=== PATIENT | female | born 1960 | race Caucasian/White ===

== ENCOUNTER 2017-02-12 09:26 | Inpatient (IN) | payer MEDICARE ==
[~2017-02-12] VITALS: Ht 170.2 cm; Wt 91.2 kg
--- NOTE | ~2017-02-12 | CO ---
Unit #: [id number] #: [id number] Patient: FALLON GALLEGO [id number] [address] [address] [id number] I MR#: [id number] NAME: FALLON GALLEGO ROOM: 570 Age: 56 Sex: F Admission Date: 02/12/2017 : 1960 Attending Physician: Yolande Blair M.D. Primary Care Physician: Annetta Jones M.D. Consultation Date: 02/15/2017 CONSULTATION REPORT REASON FOR CONSULTATION Followup. DISCUSSION Ms. Fallon Gallego is a 56-year-old female, seen in room 517, bed 1, on 02/15/2017. The patient dressed in hospital attire, lying comfortably. The patient is pleasant and cooperative, reports making progress. Denied any suicidal or homicidal ideation. Denied any psychotic symptom. The patient's vital signs; temperature 98.0, pulse 92, respirations 17, blood pressure 142/62, oxygen saturation 96%. REVIEW OF SYSTEMS Complete review of systems unremarkable. MENTAL STATUS EXAMINATION General appearance, the patient dressed casually, lying in a propped up position. Pleasant and cooperative. Attention span and concentration, fair. Speech, regular rate and coherent. Oriented in time, place, and person. Mood and affect, sad, dysphoric, but able to smile. Thought process, coherent. Thought content, the patient denied any thoughts of harming self or others. Denied any hallucination. Recent and remote memory, fair. Language, intact. Fund of knowledge, fair. Insight and judgment, fair to slightly impaired. DIAGNOSES Psychiatric: Major depressive disorder, recurrent, severe, F33.2; delirium, F05, resolved. ASSESSMENT AND PLAN 1. Supportive psychotherapy and psychoeducation provided to the patient. 2. Educated about benefits and side effects of medication and course and prognosis of illness. 3. Advised to continue with current medication. If needed, consider further adjustment of medication. We will make further adjustment of medication if needed. Dictated by... Ag Kat M.D. BEVERLY/lidia TD: 02/16/2017 00:26 JOB #: [id number] Unit #: [id number] #: [id number] Patient: FALLON GALLEGO CONSULTATION REPORT Page 1 of 1 X Ag Kat MD CONSULTATION REPORT
--- NOTE | ~2017-02-12 | CO ---
Unit #: [id number] #: [id number] Patient: FALLON GALLEGO [id number] [address] [address] [id number] I MR#: [id number] NAME: FALLON GALLEGO ROOM: 570 Age: 56 Sex: F Admission Date: 02/12/2017 : 1960 Attending Physician: Yolande Blair M.D. Primary Care Physician: Annetta Jones M.D. Consultation Date: 02/16/2017 CONSULTATION REPORT DISCUSSION Fallon Gallego is a 36-year-old female seen in room 570, bed 1 on 02/16/2017 at [facility]. The patient was dressed casually, lying comfortably in bed. The patient reports medication is helping her. Decrease in anxiety and depression. Able to sleep better. Denied any suicidal or homicidal ideation. Denied any psychotic symptoms. Vital signs 98.0, 86, 16, 147/78, oxygen saturation 95%. REVIEW of SYSTEMS: Unremarkable. MENTAL STATUS EXAMINATION: General appearance, the patient is dressed casually. Attention and concentration fair. Speech regular rate, coherent. Oriented to time, place and person. Mood and affect brighter. Thought process coherent. Thought content, the patient denied any thoughts of harming self or others. No psychotic symptoms. Recent and remote memory fair. Language intact. Fund of knowledge fair. Insight and judgment fair to slightly improved. DIAGNOSES Psychiatric: Major Depressive disorder, recurrent, severe. F33.2 ASSESSMENT/PLAN Advised to continue with current medications and therapy protocol. If needed, consider further adjustment of medication. Dictated by... Carolyn Perez/ellen TD: 02/16/2017 15:43 JOB #: [id number] Unit #: [id number] #: [id number] Patient: FALLON GALLEGO CONSULTATION REPORT Page 1 of 1 X Ag Kat MD X CONSULTATION REPORT
--- NOTE | ~2017-02-12 | CT71 ---
[facility] A Service of [facility] RADIOLOGY TEXT RESULTS PATIENT: MONIKA OCHOA LOCATION: CICCU3 CICCU3-14 : [birth year] UNIT #: [id number] AGE: [address]: Yolande Blair MD SEX: F ORDER DR: [id number] [facility] [address] [place], [place] [address] [id number] MR#: [id number] Acc #: [id number] NAME: MONIKA OCHOA : 1960 SEX: F STUDY DATE/TIME: 02/12/2017 10:02 UNIT: CEDOF ROOM: [id number] STUDY DESCRIPTION: CT Head Wo Contrast Attending Physician: Kong Buitrago M.D. Ordering Physician: Jose Rios M.D. Primary Care Physician: Annetta Jones M.D. MEDICAL IMAGING REPORT This report is preliminary unless electronic signature is present EXAM CT head, 02/12/2017. HISTORY Found unresponsive this a.m. LSN last p.m. 1999. Responds only to severe pain, deviated to right. TECHNIQUE CT head performed skull base through vertex without intravenous contrast. This CT exam was performed with one or more of the following radiation dose reduction techniques: automatic exposure control, adjustment of mA and/or kV according to patient size, and iterative reconstruction. COMPARISON 07/22/2016. FINDINGS The brainstem is unremarkable. The cerebellum and cerebral hemispheres show normal sosa matter-white matter differentiation. There is no hemorrhage or evidence of acute cortical ischemia. The midline structures are nondisplaced. The basal ganglia are intact. The ventricles, cisterns, and sulci are normal in size and contour. The intraorbital soft tissues are unremarkable. The visualized paranasal sinuses and mastoid air cells are notable for minimal mucosal thickening ethmoid air cells. No air-fluid levels. Minimal mucosal thickening left frontal sinus. Significantly improved appearance of the sinuses compared to prior study. No fracture. No intra- or extraaxial mass effect or abnormal intracranial fluid collection. Not mentioned above, there is a subcentimeter focus of hypodensity inferior right putamen favored to be dilated perivascular space or chronic lacunar infarct. It is unchanged from prior study. IMPRESSION [facility] A Service of [facility] RADIOLOGY TEXT RESULTS PATIENT: MONIKA OCHOA LOCATION: CICCU3 CICCU3-14 : [birth year] UNIT #: [id number] AGE: [address]: Yolande Blair MD SEX: F ORDER DR: 1. No acute abnormality in brain. No change in comparison to 07/22/2016. If patient has ongoing neurologic symptoms, consider follow up imaging preferably with MRI if patient is a candidate. 2. Chronic subcentimeter lacunar infarct versus dilated perivascular space inferior right putamen, unchanged from prior study. 3. Mild mucosal thickening ethmoid air cells and left frontal sinus. Appearance of the paranasal sinuses markedly improved compared to prior examination. Dictated by... Tej Desir M.D. THIS IS AN ELECTRONICALLY VERIFIED REPORT Tej Desir M.D. at 02/13/2017 6:15 PM JEREMI/rea TD: 02/12/2017 14:00 JOB #: [id number] MEDICAL IMAGING REPORT Page 1 of 1 COPY
--- NOTE | ~2017-02-12 | CR72 ---
[facility] A Service of [facility] RADIOLOGY TEXT RESULTS PATIENT: MONIKA OCHOA LOCATION: CEDOF [address]-00 : [birth year] UNIT #: [id number] AGE: [address]: FAZAL GARCIA MD SEX: F ORDER DR: [id number] [facility] [address] [place], [place] [address] [id number] MR#: [id number] Acc #: [id number] NAME: MONIKA OCHOA : 1960 SEX: F STUDY DATE/TIME: 02/12/2017 10:20 UNIT: GUILLERMO ROOM: STUDY DESCRIPTION: CR Chest Single View Portable Attending Physician: Jose Rios M.D. Ordering Physician: Jose Rios M.D. Primary Care Physician: Annetta Jones M.D. MEDICAL IMAGING REPORT This report is preliminary unless electronic signature is present EXAM Chest portable 02/12/2017 10:20 hours. HISTORY 56-year-old woman unresponsive today with shortness of air and intubated. Bradycardia. COMPARISON 07/31/2016. FINDINGS Portable film is limited by low lung volumes and positioning. There is an endotracheal tube present with tip 3.6 cm above the shireen. Heart size is within normal limits. There is a mildly prominent aorta unchanged. There is elevation of the right hemidiaphragm with right basilar density. This could represent pneumonia or atelectasis. Left lung is clear and there is no effusion or pneumothorax. IMPRESSION 1. Endotracheal tube tip is 3.6 cm above the shireen. 2. Stable heart size and a mildly tortuous aorta. 3. There is right basilar density and some right-sided elevation of the hemidiaphragm. Right basilar findings could represent pneumonia or atelectasis. There is no definite effusion or pneumothorax. Dictated by... Anita Lynch M.D. THIS IS AN ELECTRONICALLY VERIFIED REPORT Anita Lynch M.D. at 02/12/2017 2:30 PM SMM/gz TD: 02/12/2017 10:[address] [facility] A Service of [facility] & [facility] RADIOLOGY TEXT RESULTS PATIENT: MONIKA OCHOA LOCATION: [facility] [address]-00 : [birth year] UNIT #: [id number] AGE: [address]: FAZAL GARCIA MD SEX: F ORDER DR: JOB #: [id number] MEDICAL IMAGING REPORT Page 1 of 1 COPY
--- NOTE | ~2017-02-12 | CO ---
Unit #: [id number] #: [id number] Patient: FALLON GALLEGO [id number] [address] [address] [id number] I MR#: [id number] NAME: FALLON GALLEGO ROOM: 570 Age: 56 Sex: F Admission Date: 02/12/2017 : 1960 Attending Physician: Yolande Blair M.D. Primary Care Physician: Annetta Jones M.D. Consultation Date: 02/14/2017 CONSULTATION REPORT REASON FOR CONSULTATION Followup. DISCUSSION Ms. Fallon Gallego is a 56-year-old female, seen in CCU-3, bed 14, on 02/14/2017 at [facility]. The patient is recovering well. Affect bright. Mood good. Reports medication is helping with anxiety and depression. Sleeping good. Making progress. Denied any suicidal or homicidal ideation. The patient's vital signs; temperature 99.1, pulse 89, respirations 21, blood pressure 148/60, oxygen saturation 95%. REVIEW OF SYSTEMS Complete review of systems unremarkable. MENTAL STATUS EXAMINATION General appearance; the patient is dressed casually, lying comfortably in bed, receiving IV. Made good eye contact. Pleasant and cooperative. Attention span and concentration, fair. Speech, regular rate and coherent. Oriented in time, place, and person. Mood and affect; sad, dysphoric, anxious, but reports feeling better. Thought process, goal directed. Thought content, the patient denied any thoughts of harming self or others or any psychotic symptom. Recent and remote memory, fair. Language, intact. Fund of knowledge, fair. Insight and judgment, fair to slightly impaired. DIAGNOSES Psychiatric: Delirium, F05, resolved; major depressive disorder, recurrent, severe, F33.2. ASSESSMENT AND PLAN Advised to continue with current medication and therapeutic protocol. If needed, consider further adjustment of medication. Please feel free to call if any question, telephone #[phone]. Dictated by... Ag Kat M.D. BEVERLY/lidia TD: 02/16/2017 01:44 JOB #: [id number] Unit #: [id number] #: [id number] Patient: FALLON GALLEGO CONSULTATION REPORT Page 1 of 1 X Ag Kat MD CONSULTATION REPORT
--- NOTE | ~2017-02-12 | DS ---
Unit #: [id number] #: [id number] Patient: MONIKA OCHOA [id number] [address] [address] [id number] I MR#: [id number] NAME: MONIKA OCHOA ROOM: 570 Age: 56 Sex: F Admission Date: 02/12/2017 : 1960 Discharge Date: 02/16/2017 Attending Physician: Yolande Blair M.D. Primary Care Physician: Annetta Jones M.D. DISCHARGE SUMMARY DISCHARGE DIAGNOSES 1. Acute hypoxic respiratory failure. 2. Toxic metabolic encephalopathy. 3. Possible seizures. 4. Aspiration pneumonia. 5. Hyponatremia. 6. Urinary tract infection with gram negative, Enterobacter cloacae. 7. Unresponsiveness on admission. 8. Sepsis with pneumonia and urinary tract infection. 9. History of back pain. 10. Bipolar. 11. Migraine headaches. 12. Hypertension. 13. Mitral valve prolapse. CONSULTANTS Dr. Mayela Buitrago. Dr. Sparrow. Dr. Kat. PROCEDURES PERFORMED EEG shows abnormal. Nothing suggesting seizure. DIAGNOSTIC DATA LABORATORY: Glucose 88, phosphorus 4.2, sodium 139, potassium 4.6, creatinine 0.6. White blood cell count 10.8, hemoglobin 10.3, platelets 270. Urine cultures are growing enterococcus. Blood cultures negative. IMAGING: CT of the head shows no acute abnormality. ALLERGIES No known drug allergies. DISCHARGE MEDICATIONS 1. Nicotine 14 mg transdermal daily. 2. Valium 5 mg p.o. t.i.d. 3. Zyprexa 5 mg p.o. daily. 4. Vimpat 100 mg p.o. b.i.d. HOSPITAL COURSE The patient is a 56-year-old admitted with unresponsiveness. Unresponsiveness: Likely from seizure. The patient was seen by neurologist and started on IV Vimpat. The patient will be discharged on Unit #: [id number] #: [id number] Patient: MONIKA OCHOA p.o. Vimpat. EEG is abnormal, but nothing suggesting seizure. Follow with neurologist as an outpatient. Acute hypoxic respiratory failure: Likely from pneumonia and unresponsiveness. The patient was seen by Dr. Mayela Buitrago. Currently the patient is off oxygen and stable. For the acute hypoxic respiratory failure, the patient was initially intubated and currently extubated. She was in the ICU. Aspiration pneumonia: Likely after seizures. The patient received antibiotics and completed course. No antibiotic needed. Enterococcus urinary tract infection: Completed broad spectrum antibiotics. She does not need antibiotics at home. Hyponatremia: The patient was seen by nephrology. Likely from hypovolemia. Replaced with normal saline. Currently stable. Toxic metabolic encephalopathy: Present on admission. Likely from seizures, resolved. The patient was seen by Dr. Kat. He is okay for the patient to be discharged home. No inpatient needed for bipolar disease. He recommended Valium, which I gave a prescription for a few days. She needs to follow up with outpatient [facility], Dr. Kat, for followup. DISPOSITION Discharge home. blood bank manager to help with medications. FOLLOWUP 1. Follow up with primary care physician in one week time. 2. Follow up with Dr. Jeffrey Thomas in three weeks time for seizures. Discharge time taken was 40 minutes. Dictated by... Carolyn Ruiz/ellen TD: 02/16/2017 13:49 JOB #: [id number] CC: Annetta Jones M.D. DISCHARGE SUMMARY Page 1 of 1 X Yolande Blair MD X DISCHARGE SUMMARY
--- NOTE | ~2017-02-12 | CO ---
Unit #: [id number] #: [id number] Patient: MONIKA OCHOA [id number] [facility] [address] [place], [place] [address] [id number] I MR#: [id number] NAME: MONIKA OCHOA ROOM: CIC3 Age: 56 Sex: F Admission Date: 02/12/2017 : 1960 Attending Physician: Yolande Blair M.D. Primary Care Physician: Annetta Jones M.D. Consultation Date: 02/12/2017 CONSULTATION REPORT PRIMARY CARE PHYSICIAN Annetta Jones M.D. REASON FOR CONSULTATION Seizures. PATIENT IDENTIFICATION This is a 56-year-old female, evaluated in ICU room 14. SOURCE OF INFORMATION Obtained from the medical record. Limited history as the patient is unable to provide any history. There is no family available at the bedside. HISTORY OF PRESENT ILLNESS This is a 56-year-old female with past medical history of multiple medical issues as discussed below, who presents to [facility] with altered mental status and unresponsiveness. Again, I am unable to obtain any information from the patient. She is intubated and sedated. There is no family available at the bedside. So, my information obtained from the ER medical record. Looking at the ERT sheet, the patient was brought in via EMS for decreased mental status with last seen normal at about 8:00 p.m. the night before. She was apparently disoriented and confused and found unresponsive by family this morning. There is report that the patient apparently quit drinking about 5 to 7 days ago and apparently stopped her routine prescriptions Xanax about 3 days ago, possibly due to being stolen, though I do not have those details. I do not have any report of any recent febrile illness, fever, headache, or injury. She is being admitted for altered mental status, seizure activity, possible pneumonia, and hyponatremia. Her sodium in the ER was 115. She has been started on 3% saline. She also had a CT of the head done in the ER that was negative for any acute intracranial abnormality in the brain in comparison to imaging from 07/22/2016. It shows a chronic subcentimeter lacunar infarct versus dilated perivascular space in the inferior right putamen unchanged from prior study, also mild mucosal thickening in the ethmoid air cells and left frontal sinus, appearance of the paranasal sinuses markedly improved compared to prior exam. In the ER, the patient was noted to have concern for seizure activity with right gaze deviation. She was treated with 2 mg of IV Ativan. It looks like she was intubated for airway protection given her mental status. Upon evaluation at this time, the patient is intubated and sedated, but with sedation vacation after propofol. She does not follow Unit #: [id number] #: [id number] Patient: SCOTTIE OCHOAKI commands or respond appropriately. She does not appear to have any gaze deviation, but she has repetitive horizontal eye movements. She does not track purposely, but she has a repetitive pattern of looking back and forth horizontally. She does not respond to any commands and she does not respond to any visual threats. She does withdrawal from noxious stimuli equally and does not appear to have any facial drooping or weakness. Again, she does not follow commands. She does not have any hippus or any nystagmus or ptosis seen. Pupils are equal, round, sluggish approximately 3+. Again, I am unable to obtain any further history from the patient or family or medical record. All history is obtained from the ERT sheet. PAST MEDICAL HISTORY 1. The patient was discharged from this facility in 07/2016 after being treated for intentional polysubstance overdose with opiates, benzodiazepines, and tricyclics as well as treatment for acute hypercapnic hypoxic respiratory failure and aspiration pneumonia as well as anion gap metabolic acidosis and hypokalemia. 2. History of bipolar disorder. 3. Vertigo. 4. Migraine headaches. 5. Mitral valve prolapse. 6. Tobacco use. 7. Anemia. 8. Sinus surgery. 9. Anxiety. 10. Breast augmentation. 11. Shoulder surgery. 12. Gastric bypass. 13. Hypertension. ALLERGIES No known drug allergies. MEDICATIONS Home medications are being reconciled. FAMILY HISTORY Unable to obtain from the patient. Looking at past records, she does not appear to have any documented significant family history other than a documented history of hypertension. SOCIAL HISTORY Unable to obtain from the patient, it looks like in the past. Per medical records, she has a history of tobacco use and alcohol use. It is reported that she quit drinking about 5 to 7 days ago. I do not know what her consumption amount was. She has a history of cocaine use with toxicology screen being positive for cocaine in 04/2015. Her urine drug screen on this admission today is unremarkable. Looking at the ERT sheet, she was apparently found by family. I am not certain whom she lives with as far as her social history. REVIEW OF SYSTEMS Unable to obtain from the patient given her mental status. PHYSICAL EXAMINATION VITAL SIGNS: Temperature 100.8. She has a T-max of 101.1, pulse 96, respirations , blood pressure 118/90, oxygen saturation 98%, height 5 feet 7 inches, weight 195 pounds. BMI 30. Unit #: [id number] #: [id number] Patient: MONIKA OCHOA NEUROLOGIC: The patient is intubated. She sedated on sedation vacation from propofol. She appears to be awake, but does not follow commands. Not purposely responsive. She withdraws from noxious stimuli, but has repetitive movements. Unable to assess speech or cognition further. She does not follow commands and she is intubated. Cranial nerve exam, she does not respond to threats in the primary visual shah. Eyes are conjugate. No ptosis or nystagmus or hippus. Extraocular movements appear to be intact; however, as discussed above she appears to have a repetitive pattern of looking back and forth. There is no purposeful response. There is no response to visual threats. She does not look in the direction of voice or other stimulus. Unable to assess sensation of face and scalp. When assessing grimace in response to noxious stimuli, she does not appear to have any focal deficit as far as strength of muscles of facial expression. Unable to assess hearing. Head turning is unremarkable spontaneously. Neck is supple. Motor exam, she withdraws from noxious stimuli equally. She lifts extremities against gravity equally, but does not follow commands. Sensory exam, she withdraws from noxious stimuli equally in all extremities. Gait and Romberg deferred. Reflexes, unable to elicit. Toes are upgoing bilaterally. DIAGNOSTIC STUDIES IMAGING STUDIES: Please see above for CT of the head. Chest x-ray, portable single view on 02/12/2017; impression per the radiologist report; 1. Endotracheal tube tip is 3.6 cm above the shireen. 2. Stable heart size and mildly tortuous aorta. 3. There is right basilar density and some right-sided elevation of the hemidiaphragm. Right basilar findings could represent pneumonia or atelectasis. No definite effusion or pneumothorax. LABORATORY RESULTS: Troponin less than 0.05. Urine drug screen unremarkable. Urinalysis shows 3+ leuks, positive for nitrites, 50 to 100 white cells, 2+ bacteria. No squamous cell seen. Culture pending. Sodium 115, potassium 3.4, chloride 83, CO2 20, glucose 141, BUN less than 5, creatinine 0.5, estimated GFR 109.7, calcium 9, AST 29, ALT 25, alkaline phosphatase 85, total protein 7.6, albumin 4.4. Acetaminophen level less than 10. Salicylate level less than 4. Alcohol level less than 5. Ammonia 16. Lactic acid 1.6. PT 10.8, INR 1.0, PTT 26.4. White blood cell count 14.8, hemoglobin 12.8, hematocrit of 37.8, and platelet count 327. Initial troponin less than 0.05. IMPRESSION 1. Altered mental status/toxic metabolic encephalopathy. 2. Seizure activity. 3. Hyponatremia. 4. Pneumonia. 5. Urinary tract infection. Culture pending. 6. Questionable benzodiazepine withdrawal. 7. Questionable alcohol withdrawal. 8. Fever. 9. Leukocytosis. PLAN The patient is still exhibiting repetitive movements, not responding appropriately. We will treat with seizure medications and check EEG and discussed with Dr. Sparrow. Recommend caution with increasing sodium slowly to avoid central pontine myelinolysis. The patient does have what looks like infection and there has been no report of headache and no Unit #: [id number] #: [id number] Patient: MONIKA OCHOA meningismus to suggest GOVERNMENT PROGRAM MANAGER infection. However must consider that in the differential diagnosis and consider LP if needed. The patient has received vancomycin, Zithromax, and Zosyn. The patient is critically ill. We will consider lumbar puncture if needed, though she does have UTI and possible pneumonia. The seizure activity could be related to benzodiazepine withdrawal, possible alcohol withdrawal and low-sodium. Certainly, her sodium of 115 can precipitate a seizure activity as well. However given her continuous repetitive movements, we will go ahead and initiate seizure medication. Request EEG. Possible further testing pending workup and further clinical course. She is being covered on antibiotics. We will consider MRI of the brain if needed as well. Case was discussed with Dr. Sparrow. She agrees the above. We will follow along with you. We thank you very much for allowing us to assist in care of this patient. Dictated by... Brii Newton A.P.R.N. for Carolyn Barkley/lidia TD: 02/13/2017 13:48 JOB #: [id number] CONSULTATION REPORT Page 1 of 1 X Brii Newton CURING PRESS MAINTAINER X CONSULTATION REPORT
--- NOTE | ~2017-02-12 | EE ---
Unit #: [id number] #: [id number] Patient: MONIKA OCHOA [id number] [address] [address] [id number] I MR#: [id number] NAME: MONIKA OCHOA : 1960 SEX: F STUDY DATE/TIME: 02/13/2017 UNIT: [facility] ROOM: 570 STUDY DESCRIPTION: EEG Attending Physician: Yolande Blair M.D. Primary Care Physician: Annetta Jones M.D. NEURODIAGNOSTICS REPORT EXAM EEG REFERRING MD Dr. Kong Buitrago REASON FOR THE STUDY Seizure. EEG DESCRIPTION This is an inpatient, portable, digitally recorded multi-montage adult EEG with leads placed according to the International 10-20 System. Hyperventilation was not done but photic stimulation was attempted. With the patient fully aroused, there is no good alpha activity. There is 5 to 7 Hz slowing. No good alpha rhythm was seen. The patient did become drowsy and later on stage 2 sleep was seen. Hyperventilation was not done. Photic stimulation was attempted in intermittent stepwise pattern up to the flash frequency of 30 Hz but I did not see any seizures or interictal discharges. No clinical events were seen. IMPRESSION This is an abnormal adult awake and asleep EEG. This may be drowsiness but otherwise would consider mild encephalopathy. Nothing suggesting seizure or status but an EEG like this does not rule out epilepsy. Clinical correlation is recommended. Dictated by... Carolyn Barkley/lennox TD: 02/16/2017 05:36 JOB #: [id number] Unit #: [id number] #: [id number] Patient: MONIKA OCHOA NEURODIAGNOSTICS REPORT Page 1 of 1 X Leobardo Sparrow MD NEURODIAGNOSTICS REPORT
--- NOTE | ~2017-02-12 | CO ---
Unit #: [id number] #: [id number] Patient: FALLON GALLEGO [id number] [facility] [address]. [place], [place] [address] [id number] I MR#: [id number] NAME: FALLON GALLEGO ROOM: 570 Age: 56 Sex: F Admission Date: 02/12/2017 : 1960 Attending Physician: Yolande Blair M.D. Primary Care Physician: Annetta Jones M.D. Consultation Date: 02/13/2017 CONSULTATION REPORT REASON FOR CONSULTATION Confusion, alcohol abuse, anxiety, agitation. HISTORY OF PRESENT ILLNESS Ms. Fallon Gallego is a 56-year-old white female, seen in CCU-3, bed 14 on 02/13/2017 at [facility]. The patient is dressed in hospital attire and needing mild soft restraint due to agitation and confusion. The patient is receiving IV fluids. She is sitting in a propped up position in ICU bed. The patient's was at the bedside. The patient's last drink was almost a week ago, drinking heavily. The patient was having problem with the agitation and received Haldol and Ativan earlier this morning. The patient's vital signs; temperature 99.3, pulse 88, respirations 18, blood pressure 123/63, and oxygen saturation 95%. The patient has a history of previous psychiatric treatment and a followup with Dr. Diamond and Dr. Frankel. The patient was on Abilify and Lexapro, but the patient reported constantly that I was on Xanax, I need Xanax. The patient also was treated with Zyprexa. When [facility], she was on Abilify and Lexapro combination. PAST PSYCHIATRIC HISTORY Remarkable for history of outpatient treatment with Dr. Diamond and inpatient treatment at [facility]. PAST MEDICAL HISTORY Remarkable for history of chronic back pain, bilateral lower extremity numbness, vertigo, migraine headache, bipolar disorder, hypertension, mitral valve prolapse, history of gastric bypass surgery, sinus surgery, breast augmentation, shoulder surgery. MEDICATIONS The patient is on Xanax, naproxen, Zyprexa, Seroquel. ALLERGIES No known drug allergies. FAMILY HISTORY AND SOCIAL HISTORY The patient has a good support system. No history of abuse. History of alcohol abuse as mentioned above. History of cocaine abuse in 2015. REVIEW OF SYSTEMS Complete review of systems is remarkable for agitation, restlessness, confusion. The patient's vital signs; temperature 99.3, pulse 88, respirations 18, blood pressure 123/63, oxygen saturation 95%. GENERAL Unit #: [id number] #: [id number] Patient: FALLON GALLEGO APPEARANCE: The patient dressed casually in hospital attire, lying in a propped up position, somewhat anxious, nervous, agitated, repeating sentences over and over again. Attention span and concentration, poor. Speech; rapid and oriented in self and place. Mood and affect; labile. Thought process; circumstantial. Recent and remote memory; poor. Language; intact. Fund of knowledge; impaired. DIAGNOSES Psychiatric: Alcohol use disorder, severe, F10.20; delirium, F05; anxiety disorder, not otherwise specified, F40.01. Secondary diagnosis: Deferred. Medical diagnosis: Please refer to H and P. Stressors: Psychosocial stressors. ASSESSMENT/PLAN 1. Supportive psychotherapy and psychoeducation were provided to the patient. 2. Educated about benefits and side effects of medication and course and prognosis of illness. 3. To decrease agitation and confusion, recommending that the patient's Xanax to be replaced with Valium long-acting medication to slowly taper it off, to taper off benzodiazepine, starting with Valium 5 mg 3 times a day. Advised to hold medication if the patient is too sleepy, Zyprexa 5 mg b.i.d. We will closely monitor. Please feel free to call if any questions. Telephone number is [phone]. Dictated by... Ag Kat M.D. BEVERLY/lidia TD: 02/16/2017 01:03 JOB #: [id number] CONSULTATION REPORT Page 1 of 1 X Ag Kat MD CONSULTATION REPORT
--- NOTE | ~2017-02-12 | CO ---
Unit #: [id number] #: [id number] Patient: MONIKA OCHOA [id number] [address] [address] [id number] I MR#: [id number] NAME: MONIKA OCHOA [facility]OM: [facility] Age: 56 Sex: F Admission Date: 02/12/2017 : 1960 Attending Physician: Yolande Blair M.D. Primary Care Physician: Annetta Jones M.D. Consultation Date: 02/12/2017 CONSULTATION REPORT REASON FOR CONSULTATION ICU management. CHIEF COMPLAINT Unresponsiveness. HISTORY OF PRESENT ILLNESS This is a 56-year-old female, who is well known to our service from previous admission with past medical history significant for bipolar disorder, vertigo, migraine, mitral valve replacement, and polysubstance abuse, who was transferred to the emergency room after she was found unresponsive. The patient currently is intubated, sedated, and her is at bedside to obtain any information. Per records, the patient was last seen normal yesterday night. This morning, when her woke up, he found her unresponsive. Her eyes were deviated to the right and up. There was no witnessed epileptic movement, but again her eye position were concerning for seizure. Per staff, the patient takes benzodiazepine for a long time and her urine drug screen is negative for benzo. There is a including her medication which includes Xanax. The patient also had extensive history of drinking alcohol, but she quit 5 to 7 days ago. In the emergency room, her sodium was noted to be low and again she was intubated and sedated; however, when turned the sedation off, the patient does not follow any commands, but she tried to reach the ET tube. PAST MEDICAL HISTORY 1. Vertigo. 2. Migraine. 3. Bipolar disorder. 4. Hypertension. 5. Mitral valve prolapse. PAST SURGICAL HISTORY 1. Gastric bypass surgery. 2. Sinus surgery. 3. Breast augmentation. 4. Shoulder surgery. Unit #: [id number] #: [id number] Patient: MONIKA OCHOA SOCIAL HISTORY The patient is a smoker. She drinks alcohol and she quit 5 to 7 days ago. She has a history of polysubstance abuse including cocaine in 2015. FAMILY HISTORY Unable to obtain. ALLERGIES No known drug allergies. HOME MEDICATIONS Xanax, naproxen, Zyprexa, Seroquel. REVIEW OF SYSTEMS Unable to obtain. PHYSICAL EXAMINATION GENERAL: The patient is intubated and sedated. VITAL SIGNS: Blood pressure is 136/71, respiratory rate 16, O2 saturation 100%. HEENT: Atraumatic and normocephalic. PERRLA. EOMI. NECK: Supple. No JVD. No lymphadenopathy. CHEST: Clear to auscultation bilaterally. HEART: S1, S2. No murmurs, gallops, or rubs. ABDOMEN: Soft and nontender. Bowel sounds positive. No hepatosplenomegaly. EXTREMITIES: No edema or cyanosis. SKIN: No rashes. PROGRAM OR PROJECT ADMINISTRATOR: Intubated and sedated. She is moving all extremities spontaneously. No focal weakness. DIAGNOSTIC STUDIES LABORATORY RESULTS: Labs and other tests. Creatinine 0.4, sodium 121, potassium 2.7. White blood count 14.8, hemoglobin 12.8. IMAGING STUDIES: Chest x-ray is concerning for right lower lobe consolidation. ASSESSMENT 1. Acute hypoxic respiratory failure. 2. Aspiration pneumonia. 3. Seizures episodes. 4. Hyponatremia. 5. Hypokalemia. 6. Alcoholism. 7. Leukocytosis. PLAN 1. The patient is critical. She will be kept on the ventilator and will reassess for spontaneous breathing trial daily. 2. Hypertonic saline with caution given her rapid improvement in her sodium. Nephrology adjusting. 3. IV Zosyn for possible aspiration pneumonia. 4. Follow urine output very closely. 5. Antiepileptics per Neurology. 6. We will keep the patient n.p.o., but we will start tube feeds tomorrow if she is not extubated. 7. DVT/GI prophylaxis. Critical care time spent on this patient was 36 minutes. Unit #: [id number] #: [id number] Patient: MONIKA OCHOA Dictated by... Nelly Buitrago M.D. EA/lidia TD: 02/13/2017 15:30 JOB #: [id number] CONSULTATION REPORT Page 1 of 1 X NELLY MARTINES MD X CONSULTATION REPORT
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
--- NOTE | ~2017-02-12 | CR72 ---
[facility] A Service of [facility] RADIOLOGY TEXT RESULTS PATIENT: MONIKA OCHOA LOCATION: [place] [id number] : [birth year] UNIT #: [id number] AGE: [address]: FAZAL BUITRAGO MD SEX: F ORDER DR: [id number] [place] [id number] [facility]. [place], [place] [address] [id number] MR#: [id number] Acc #: [id number] NAME: MONIKA OCHOA : 1960 SEX: F STUDY DATE/TIME: 02/12/2017 14:32 UNIT: [facility] ROOM: [facility] STUDY DESCRIPTION: CR Chest Single View Portable Attending Physician: Fazal Buitrago M.D. Ordering Physician: Jose Rios M.D. Primary Care Physician: Annetta Jones M.D. MEDICAL IMAGING REPORT This report is preliminary unless electronic signature is present EXAM Frontal chest, 02/12/2017 INDICATIONS Central line placement, respiratory failure symptoms began today. Short of breath. TECHNIQUE Frontal chest compared with 02/12/2017 1020 hours. FINDINGS ET tube tip in good position above the shireen. Right-sided central line terminates at the [id number] SVC level. Cardiac silhouette borderline in size and stable. There is dextroscoliosis. Bronchovascular crowding with probable bibasilar atelectasis or faint infiltrates, right greater than left. No pneumothorax. IMPRESSION 1. Tubes and lines in satisfactory position. No pneumothorax. 2. Probable bibasilar atelectasis, right greater than left. Dictated by... William Martinez M.D. THIS IS AN ELECTRONICALLY VERIFIED REPORT William Martinez M.D. at 02/12/2017 11:33 PM RODRIGO/wil TD: 02/12/2017 21:06 JOB #: [id number] MEDICAL IMAGING REPORT [facility] A Service of [facility] RADIOLOGY TEXT RESULTS PATIENT: MONIKA OCHOA LOCATION: [address] : [birth year] UNIT #: [id number] AGE: [address]: FAZAL BUITRAGO MD SEX: F ORDER DR: Page 1 of 1 COPY
--- NOTE | ~2017-02-12 | EKG ---
PATIENT: MONIKA OCHOA UNIT #: [id number] Ventricular Rate: 63 BPM Atrial Rate: 63 BPM P-R Interval: 158 ms QRS Duration: 100 ms Q-T Interval: 482 ms QTC Calculation(Bezet): 493 ms P Hampton: 15 degrees Calculated R Hampton: 1 degrees Calculated T Hampton: 51 degrees Diagnosis Line: Normal sinus rhythm Diagnosis Line: Prolonged QT Diagnosis Line: Abnormal ECG Diagnosis Line: When compared with ECG of 22-JUL-2016 13:48, Diagnosis Line: Vent. rate has decreased BY 77 BPM Diagnosis Line: ST no longer depressed in Anterior leads Diagnosis Line: Confirmed by JOSE MIGUEL ROSALES MD ([id number]) on 02/12/2017 Diagnosis Line: 7:24:40 PM INTERPRETING MD: BOBBY EVANGELISTA
[~2017-02-12 09:26] MED LIST: ABILIFY2 MG PO; ALBUTEROL HFA INH; ALPRAZOLAM PO; AMBIEN10 MG PO; ATIVAN PO; ATIVAN0.5 MG PO; AUGMENTIN 875/125MG PO; CAPOZIDE PO; DICLOFENAC PO; DIFLUCAN PO; DOXEPIN HCL25 MG PO; EC-NAPROSYN500 MG PO; FLEXERIL PO; GEODON20 MG PO; HYDROCHLOROTHIA25 MG PO; HYDROCODONE-APA1 T30 PO; IBUPROFEN PO; IMITREX50 MG PO; INDERAL20 MG DOB; INDERAL20 MG PO; LISINOPRIL10 MG PO; LORAZEPAM1 MG PO; MECLIZINE HCL12.5 M1 PO; MEDROL DOSEPAK4 MG; MEDROL PO; NAPROSYN500 MG PO; NICOTINE TRANSD14 MG EXT; NORCO 7.5MG/325MG PO; PERCOCET 5-3251 TAB PO; PREDNISONE PO; SEROQUEL PO; SEROQUEL50 M1 PO; SKELAXIN PO; TOPAMAX25 MG DOB; ULTRAM PO; VOLTAREN75 MG PO; XANAX1 MG PO; XANAX2 MG PO
[2017-02-12] MEDS ORDERED: PATIENT'S PHARMACY (09:41)
[2017-02-12] MEDS ORDERED: XANAX1 MG PO (09:42)
[2017-02-12] MEDS ORDERED: ZYPREXA PO (09:44)
[2017-02-12] MEDS ORDERED: NAPROXEN PO (09:44)
[2017-02-12] MEDS ORDERED: SEROQUEL PO (09:44)
[2017-02-12 09:53] LABS: POC - CKMB 6.8 ng/mL (0.0-7.9); POC - TROPONIN <0.05 ng/mL (<=0.05)
[2017-02-12 10:06] LABS: BASOPHIL% 0.1 % (0-2.5); HEMATOCRIT 37.8 % (35.0-45.0); HEMOGLOBIN 12.8 gm/dL (12.0-16.0); LYMPHOCYTE# 1.2 X10e3 (1.0-3.5); LYMPHOCYTE% 8.1 % (17.0-45.0); MEAN CELL VOLUME 87.6 FL (83-96); MEAN CORPUSCULAR HEMOGLOBIN 29.6 PG (28-34); MEAN CORPUSCULAR HGB CONC 33.8 g/dL (30-36); MEAN PLATELET VOLUME 7.8 FL (6.5-11.5); MONOCYTE# 1.3 X10e3 (0-1.0); MONOCYTE% 9.1 % (3.0-12.0); NEUTROPHIL# 12.2 X10e3 (1.5-7.1); NEUTROPHIL% 82.7 % (40-75); PLATELET COUNT 327 X10e3 (140-420); RED BLOOD COUNT 4.31 X10e (3.90-5.30); RED CELL DISTRIBUTION WIDTH 15.8 % (11.0-15.5); WHITE BLOOD COUNT 14.8 X10e3 (4.0-10.5)
[2017-02-12 10:08] LABS: DIFF IND NO
[2017-02-12 10:19] LABS: PARTIAL THROMBOPLASTIN TIME 26.4 SECONDS (23.5-31.3); PROTHROMBIN TIME (PATIENT) 10.8 SECONDS (10.0-11.7)
[2017-02-12 10:28] LABS: ARTERIAL BLD GAS O2 SATURATION 97.9 % (90.0-100.0); ARTERIAL BLOOD GAS ALLEN TEST NORMAL; ARTERIAL BLOOD GAS ART SITE RIGHT RADIAL; ARTERIAL BLOOD GAS CARBOXY HB 0.9 %sat (0.0-9.0); ARTERIAL BLOOD GAS HCO3 21.4 mmol/L; ARTERIAL BLOOD GAS MET HB 0.9 %sat (0.0-2.0); ARTERIAL BLOOD GAS PCO2 38.6 mmHg (35.0-45.0); ARTERIAL BLOOD GAS pH 7.352 (7.350-7.450); ARTERIAL DRAW? YES
[2017-02-12 10:29] LABS: ARTERIAL BLOOD GAS DELIVERY VENT; ARTERIAL BLOOD GAS VENT MODE A/C
[2017-02-12 10:45] LABS: ACETAMINOPHEN <10 ug/mL; ALCOHOL BLOOD <5 mg/dL ([0,]); SALICYLATE <4.0 mg/dL
[2017-02-12 10:46] LABS: ALBUMIN SERUM 4.4 g/dL (3.5-5.0); ALKALINE PHOSPHATASE 85 U/L (32-92); ALT (SGPT) 25 U/L (10-40); AST (SGOT) 29 U/L (10-42); BILIRUBIN, DIRECT 0.1 mg/dL (0.0-0.2); BILIRUBIN,INDIRECT 0.8 mg/dL (0.0-0.9); BILIRUBIN,TOTAL 0.9 mg/dL (0.2-2.0); CARBON DIOXIDE 20 mmol/L (22-31); CHLORIDE 83 mmol/L (100-111); CREATININE SERUM 0.5 mg/dL (0.6-1.4); GLOM FILT RATE Estimated 109.7 mL/min (>60); GLUCOSE FASTING 141 mg/dL (70-110); POTASSIUM 3.4 mmol/L (3.5-5.1); PROTEIN TOTAL SERUM 7.6 g/dL (6.0-8.3)
[2017-02-12 10:56] LABS: URINE APPEARANCE CLEAR; URINE BILIRUBIN NEG (NEG); URINE BLOOD NEG (NEG); URINE COLOR YELLOW; URINE GLUCOSE NEG (NEG); URINE KETONE TRACE (NEG); URINE LEUKOCYTE ESTERASE 3+ (NEG); URINE NITRATE POS (NEG); URINE PH 6.5 (5-8); URINE PROTEIN NEG (NEG); URINE SPECIFIC GRAVITY 1.006 (1.003-1.035); URINE UROBILINOGEN 0.2 MG/DL (NEG)
[2017-02-12 10:58] LABS: BLOOD UREA NITROGEN <5 mg/dL (9-23)
[2017-02-12 10:59] LABS: SODIUM 115 mmol/L (135-145)
[2017-02-12 11:01] LABS: CULTURE INDICATED? YES; URBCS1 AUWI 0-2 /[HPF] (0-2); URINE BACTERIA AUWI 2+ (NEGATIVE); URINE SQUAMOUS EPITHELIAL CELL NONE SEEN /[HPF]; UWBCS1 AUWI 50-100 (0-5)
[2017-02-12 11:06] LABS: URINE SOURCE CATH
[2017-02-12 11:13] LABS: AMPHETAMINE NEG (NEG); BARBITURATES NEG (NEG); BENZODIAZEPINES NEG (NEG); COCAINE NEG (NEG); MARIJUANA NEG (NEG); OPIATES NEG (NEG); TRICYCLIC ANTIDEPRESSANTS NEG (NEG); U METHADONE NEG (NEG)
[2017-02-12 11:33] LABS: POC - CKMB 9.5 ng/mL (0.0-7.9); POC - TROPONIN <0.05 ng/mL (<=0.05)
[2017-02-12 18:11] LABS: CREATININE,RANDOM URINE <10 mg/dL; SODIUM URINE RANDOM <10 mmol/L
[2017-02-12 18:22] LABS: CALCIUM SERUM 8.5 mg/dL (8.4-10.2); CARBON DIOXIDE 19 mmol/L (22-31); CHLORIDE 90 mmol/L (100-111); CREATININE SERUM 0.4 mg/dL (0.6-1.4); GLOM FILT RATE Estimated 118.1 mL/min (>60); GLUCOSE FASTING 120 mg/dL (70-110)
[2017-02-12 18:24] LABS: BLOOD UREA NITROGEN <5 mg/dL (9-23)
[2017-02-12 18:25] LABS: POTASSIUM 2.7 mmol/L (3.5-5.1); SODIUM 121 mmol/L (135-145)
[2017-02-12 18:39] LABS: OSMOLALITY,URINE 40 mOsmo/kg (250-900)
[2017-02-12 19:32] LABS: URIC ACID 2.5 mg/dL (2.6-7.2)
[2017-02-12 19:44] LABS: THYROID STIMULATING HORMONE 0.31 uIU/ml (0.34-5.60)
[2017-02-13 00:36] LABS: BLOOD UREA NITROGEN <5 mg/dL (9-23); CALCIUM SERUM 8.3 mg/dL (8.4-10.2); CARBON DIOXIDE 20 mmol/L (22-31); CHLORIDE 100 mmol/L (100-111); CREATININE SERUM 0.5 mg/dL (0.6-1.4); GLOM FILT RATE Estimated 109.7 mL/min (>60); GLUCOSE FASTING 121 mg/dL (70-110); POTASSIUM 3.2 mmol/L (3.5-5.1); SODIUM 128 mmol/L (135-145)
[2017-02-13 03:36] LABS: BASOPHIL# 0.1 X10e3 (0-0.3); BASOPHIL% 0.5 % (0-2.5); DIFF IND NO; HEMATOCRIT 34.8 % (35.0-45.0); HEMOGLOBIN 11.6 gm/dL (12.0-16.0); LYMPHOCYTE# 1.4 X10e3 (1.0-3.5); LYMPHOCYTE% 9.7 % (17.0-45.0); MEAN CORPUSCULAR HEMOGLOBIN 29.4 PG (28-34); MEAN CORPUSCULAR HGB CONC 33.4 g/dL (30-36); MONOCYTE# 1.1 X10e3 (0-1.0); MONOCYTE% 7.6 % (3.0-12.0); NEUTROPHIL# 11.8 X10e3 (1.5-7.1); NEUTROPHIL% 82.2 % (40-75); PLATELET COUNT 272 X10e3 (140-420); RED BLOOD COUNT 3.95 X10e (3.90-5.30); WHITE BLOOD COUNT 14.3 X10e3 (4.0-10.5)
[2017-02-13 04:01] LABS: CALCIUM SERUM 8.6 mg/dL (8.4-10.2); CARBON DIOXIDE 21 mmol/L (22-31); CHLORIDE 104 mmol/L (100-111); CREATININE SERUM 0.6 mg/dL (0.6-1.4); GLOM FILT RATE Estimated 103.3 mL/min (>60); GLUCOSE FASTING 112 mg/dL (70-110); POTASSIUM 3.7 mmol/L (3.5-5.1); SODIUM 132 mmol/L (135-145)
[2017-02-13 04:06] LABS: BLOOD UREA NITROGEN <5 mg/dL (9-23); BUN/CREATININE RATIO 8.33
[2017-02-13 04:44] LABS: ARTERIAL BLD GAS O2 SATURATION 96.4 % (90.0-100.0); ARTERIAL BLOOD GAS CARBOXY HB 0.5 %sat (0.0-9.0); ARTERIAL BLOOD GAS HCO3 21.3 mmol/L; ARTERIAL BLOOD GAS PCO2 31.6 mmHg (35.0-45.0); ARTERIAL BLOOD GAS PO2 99.3 mmHg (80.0-100); ARTERIAL BLOOD GAS pH 7.438 (7.350-7.450)
[2017-02-13 04:50] LABS: ARTERIAL BLOOD GAS ART SITE RIGHT RADIAL; ARTERIAL BLOOD GAS DELIVERY VENT; ARTERIAL BLOOD GAS VENT MODE AC; ARTERIAL DRAW? YES
[2017-02-13 04:51] LABS: ARTERIAL BLOOD GAS ALLEN TEST NORMAL
[2017-02-13 17:45] LABS: BUN/CREATININE RATIO 11.66; CALCIUM SERUM 8.2 mg/dL (8.4-10.2); CREATININE SERUM 0.6 mg/dL (0.6-1.4); GLOM FILT RATE Estimated 103.3 mL/min (>60); POTASSIUM 3.5 mmol/L (3.5-5.1)
[2017-02-13 19:37] LABS: CALCIUM SERUM 7.9 mg/dL (8.4-10.2); CREATININE SERUM 0.5 mg/dL (0.6-1.4); GLOM FILT RATE Estimated 109.7 mL/min (>60)
[2017-02-13 19:40] LABS: POTASSIUM 2.9 mmol/L (3.5-5.1)
[2017-02-13 23:17] LABS: CALCIUM SERUM 7.8 mg/dL (8.4-10.2); CREATININE SERUM 0.5 mg/dL (0.6-1.4); GLOM FILT RATE Estimated 109.7 mL/min (>60); POTASSIUM 3.3 mmol/L (3.5-5.1)
[2017-02-14 03:44] LABS: CALCIUM SERUM 7.8 mg/dL (8.4-10.2); CREATININE SERUM 0.5 mg/dL (0.6-1.4); GLOM FILT RATE Estimated 109.7 mL/min (>60); POTASSIUM 3.2 mmol/L (3.5-5.1)
[2017-02-14 06:49] LABS: BASOPHIL% 0.4 % (0-2.5); EOSINOPHIL# 0.2 X10e3 (0-0.7); EOSINOPHIL% 1.4 % (0.0-7.0); HEMATOCRIT 27.8 % (35.0-45.0); LYMPHOCYTE# 2.6 X10e3 (1.0-3.5); LYMPHOCYTE% 23.7 % (17.0-45.0); MEAN CELL VOLUME 89.6 FL (83-96); MEAN CORPUSCULAR HEMOGLOBIN 29.7 PG (28-34); MEAN CORPUSCULAR HGB CONC 33.1 g/dL (30-36); MEAN PLATELET VOLUME 7.9 FL (6.5-11.5); MONOCYTE# 1.1 X10e3 (0-1.0); MONOCYTE% 9.8 % (3.0-12.0); NEUTROPHIL# 7.2 X10e3 (1.5-7.1); NEUTROPHIL% 64.7 % (40-75); PLATELET COUNT 210 X10e3 (140-420); RED BLOOD COUNT 3.11 X10e (3.90-5.30); WHITE BLOOD COUNT 11.1 X10e3 (4.0-10.5)
[2017-02-14 06:57] LABS: HEMOGLOBIN 9.2 gm/dL (12.0-16.0)
[2017-02-14 06:58] LABS: DIFF IND NO
[2017-02-14 07:14] LABS: CALCIUM SERUM 7.9 mg/dL (8.4-10.2); CARBON DIOXIDE 21 mmol/L (22-31); CHLORIDE 98 mmol/L (100-111); CREATININE SERUM 0.4 mg/dL (0.6-1.4); GLOM FILT RATE Estimated 118.1 mL/min (>60); GLUCOSE FASTING 97 mg/dL (70-110); POTASSIUM 3.2 mmol/L (3.5-5.1)
[2017-02-14 07:26] LABS: BLOOD UREA NITROGEN <5 mg/dL (9-23)
[2017-02-14 07:27] LABS: SODIUM 125 mmol/L (135-145)
[2017-02-14 14:13] LABS: CALCIUM SERUM 8.6 mg/dL (8.4-10.2); CREATININE SERUM 0.5 mg/dL (0.6-1.4); GLOM FILT RATE Estimated 109.7 mL/min (>60); POTASSIUM 4.1 mmol/L (3.5-5.1)
[2017-02-14 20:13] LABS: CALCIUM SERUM 8.7 mg/dL (8.4-10.2); CREATININE SERUM 0.6 mg/dL (0.6-1.4); GLOM FILT RATE Estimated 103.3 mL/min (>60)
[2017-02-15 06:31] LABS: BASOPHIL# 0.1 X10e3 (0-0.3); BASOPHIL% 0.8 % (0-2.5); EOSINOPHIL# 0.2 X10e3 (0-0.7); EOSINOPHIL% 1.8 % (0.0-7.0); HEMATOCRIT 31.4 % (35.0-45.0); HEMOGLOBIN 10.3 gm/dL (12.0-16.0); LYMPHOCYTE# 2.5 X10e3 (1.0-3.5); MEAN CELL VOLUME 89.8 FL (83-96); MEAN CORPUSCULAR HEMOGLOBIN 29.5 PG (28-34); MEAN CORPUSCULAR HGB CONC 32.9 g/dL (30-36); MEAN PLATELET VOLUME 7.7 FL (6.5-11.5); MONOCYTE% 9.1 % (3.0-12.0); NEUTROPHIL% 65.3 % (40-75); PLATELET COUNT 270 X10e3 (140-420); RED BLOOD COUNT 3.49 X10e (3.90-5.30); RED CELL DISTRIBUTION WIDTH 16.2 % (11.0-15.5); WHITE BLOOD COUNT 10.8 X10e3 (4.0-10.5)
[2017-02-15 06:34] LABS: DIFF IND NO
[2017-02-15 07:19] LABS: ALBUMIN SERUM 3.4 g/dL (3.5-5.0); ALKALINE PHOSPHATASE 58 U/L (32-92); ALT (SGPT) 27 U/L (10-40); AST (SGOT) 75 U/L (10-42); BILIRUBIN,TOTAL 0.2 mg/dL (0.2-2.0); BLOOD UREA NITROGEN <5 mg/dL (9-23); CALCIUM SERUM 8.7 mg/dL (8.4-10.2); CARBON DIOXIDE 24 mmol/L (22-31); CHLORIDE 105 mmol/L (100-111); CREATININE SERUM 0.5 mg/dL (0.6-1.4); GLOM FILT RATE Estimated 109.7 mL/min (>60); GLUCOSE FASTING 109 mg/dL (70-110); POTASSIUM 3.6 mmol/L (3.5-5.1); PROTEIN TOTAL SERUM 6.5 g/dL (6.0-8.3); SODIUM 138 mmol/L (135-145)
[2017-02-16 07:32] LABS: CALCIUM SERUM 9.1 mg/dL (8.4-10.2); CREATININE SERUM 0.6 mg/dL (0.6-1.4); GLOM FILT RATE Estimated 103.3 mL/min (>60); POTASSIUM 4.6 mmol/L (3.5-5.1)
[2017-02-16] MEDS ORDERED: NICOTINE TRANSD14 MG TOP (12:51)
[2017-02-16] MEDS ORDERED: DIAZEPAM PO (12:55)
[2017-02-16] MEDS ORDERED: VIMPAT100 MG PO (12:56)
== END 2017-02-16 13:55 | disposition home or self-care (01) | DRG 871 ==
LOC: CED 09:26 → CEDOF 11:18 → CED 11:49 → CEDOF 11:49 → CICCU3 16:12 → CEDOF 16:12 → CICCU3 02-13 09:26 → C5C 02-14 15:46
PROVIDERS: Emergency Medicine; Internal Medicine; Internal Medicine Endocrinology, Diabetes & Metabolism; Internal Medicine Nephrology; Internal Medicine Pulmonary Disease; Nurse Practitioner
PROC: 0BH17EZ Insertion of Endotracheal Airway into Trachea, Via Natural or Artificial Opening (ICD-10-PCS; principal; 2017-02-12)
PROC: 5A1935Z Respiratory Ventilation, Less than 24 Consecutive Hours (ICD-10-PCS; 2017-02-12)
PROC: 05HM33Z Insertion of Infusion Device into Right Internal Jugular Vein, Percutaneous Approach (ICD-10-PCS; 2017-02-12)
DX: A41.9 Sepsis, unspecified organism (principal); J69.0 Pneumonitis due to inhalation of food and vomit; J96.01 Acute respiratory failure with hypoxia; G92 Toxic encephalopathy; E87.2 Acidosis; E87.1 Hypo-osmolality and hyponatremia; N39.0 Urinary tract infection, site not specified; F13.230 Sedative, hypnotic or anxiolytic dependence with withdrawal, uncomplicated; F10.230 Alcohol dependence with withdrawal, uncomplicated; F33.2 Major depressive disorder, recurrent severe without psychotic features; F05 Delirium due to known physiological condition; R56.9 Unspecified convulsions; B95.2 Enterococcus as the cause of diseases classified elsewhere; G43.909 Migraine, unspecified, not intractable, without status migrainosus; I10 Essential (primary) hypertension; F17.200 Nicotine dependence, unspecified, uncomplicated; Z86.73 Personal history of transient ischemic attack (TIA), and cerebral infarction without residual deficits; Z98.84 Bariatric surgery status; Z95.2 Presence of prosthetic heart valve; F41.9 Anxiety disorder, unspecified; E87.6 Hypokalemia; Y90.0 Blood alcohol level of less than 20 mg/100 ml
CPT/HCPCS: 31500; 36600; 70450; 71010; 80048; 80053; 80076; 80307; 81003; 82140; 82533; 82553; 82570; 82803; 82947; 83605; 83880; 83930; 83935; 84100; 84300; 84443; 84484; 84550; 85025; 85610; 85730; 87040; 87086; 87088; 87186; 87493; 92610; 93005; 94002; 94640; 94664; 94760; 95816; 96361; 96374; 97161; 99291; C9254; G0480; G8978-GP; G8979-GP; G8980-GP; G8996-GN; G8997-GN; G8998-GN; J0456; J1630; J1815; J2060; J2250; J2543; J2597; J3010; J3370